=== PATIENT | female | born 1970 | race Caucasian/White ===

== ENCOUNTER → 2018-07-23 12:22 | Outpatient (REF) | payer BC, SELFPAY ==
[2018-07-23 12:29] LABS: Adenovirus F 40/41, stool Not Detected (NotDetected); Astrovirus Not Detected (NotDetected); Clostridium Difficile A/B, PCR Not Detected (NotDetected); Cryptosporidium Not Detected (NotDetected); Cyclospora Cayetanesis Not Detected (NotDetected); Entamoeba histolytica Not Detected (NotDetected); Enteroaggregative E coli Not Detected (NotDetected); Enterotoxigenic E coli Not Detected (NotDetected); Giardia lamblia Not Detected (NotDetected); Norovirus Not Detected (NotDetected); Plesimonas Shigalloides, PCR Not Detected (NotDetected); Rotavirus A Not Detected (NotDetected); Salmonella, PCR Not Detected (NotDetected); Sapovirus Not Detected (NotDetected); Shiga-like toxin E coli Not Detected (NotDetected); Shigella Enterovasive E coli Not Detected (NotDetected); Vibrio Cholerae Not Detected (NotDetected); Vibrio, PCR Not Detected (NotDetected); Yersinia Entercolitica, PCR Not Detected (NotDetected)
[2018-07-23 17:10] LABS: Occult Blood,Stool Positive (Negative)
[2018-07-23 17:21] LABS: Campylobacter Detected (NotDetected)
[2018-07-23 17:22] LABS: Enteropathogenic E coli Detected (NotDetected)
== END ==
LOC: LAB 12:22
PROVIDERS: Visit Provider Emergency Medicine
DX: R10.31 Right lower quadrant pain (principal)
CPT/HCPCS: 82272; 87507; G0328

== ENCOUNTER 2021-12-01 13:58 | Emergency (ER) | payer BC, SELFPAY ==
[2021-12-01 15:12] VITALS: BP 164/92; PULSE 94; RESP 18; TEMP 37.1; O2SAT 97; BMI 28.0
--- NOTE | 2021-12-01 15:28 | HMH.EDUTC ---
[facility] [place] Disposition Clinical Impression: Low back pain Qualifiers: Chronicity: acute Back pain laterality: bilateral Sciatica presence: without sciatica Qualified Code(s): M54.50 - Low back pain, unspecified Low back strain Qualifiers: Encounter type: initial encounter Qualified Code(s): S39.012A - Strain of muscle, fascia and tendon of lower back, initial encounter Disposition: Home, Self-Care Condition on Discharge: Good Instructions: Low Back Pain, DI for Low Back Pain, Cyclobenzaprine, Methylprednisolone, Methylprednisolone Injection, Ketorolac Injection Additional Instructions: Go home and rest. It would be best if you rested tomorrow too. If you don't allow yourself to rest and heal, you will not get better as fast as you would if you did No heavy lifting. No twisting. Take the oral medications as directed. The muscle relaxer (cyclobenzaprine--Flexeril) will make you drowsy, so don't drive or operate heavy machinery after taking it. Don't start the oral steroids (medrol dose pack) until tomorrow, since you had the shots in here today. Follow up with your regular doctor. GO TO THE ER FOR ANY WORSENING SYMPTOMS OR CONCERN, ESPECIALLY BOWEL OR BLADDER ISSUES, SADDLE AREA NUMBNESS, FEVER, ETC Prescriptions: Cyclobenzaprine HCl [Cyclobenzaprine 10mg Tab] 10 mg PO BIDP PRN #20 tab PRN Reason: Muscle Spasm Transmission Status: Received by [id number] methylPREDNISolone [Medrol] 4 mg PO DIRECTED 6 Days #21 packet Transmission Status: Received by [id number] Referrals: Emir Becerra [Primary Care Provider] - Time of Disposition: 15:53 Medical Decision Making - Medical Records Medical records reviewed: No: I reviewed the patient's medical records. - Isaiah Inquiry Pt receiving controlled substance: No Vital Signs: 12/01/21 15:12 Temperature 98.8 F Temperature Source Oral Pulse Rate [Right Brachial] 94 H Respiratory Rate 18 Blood Pressure [Right Arm] 164/92 H Blood Pressure Mean [Right Arm] 116 Blood Pressure Source [Right Arm] Automatic Cuff 02 Sat by Pulse Oximetry 97 Oxygen Delivery Method Room Air Orders (Tests/Meds): ED MEDICATIONS Discontinued Medications Generic Name Dose Route Start Last Admin Trade Name Freq PRN Reason Stop Dose Admin Ketorolac Tromethamine 60 mg 12/01/21 15:49 12/01/21 16:09 Ketorolac 60mg/2ml Vial IM 12/01/21 15:50 60 mg ONCE ONE Administration Methylprednisolone Sodium Succinate 125 mg 12/01/21 15:49 Methylprednisolone Sod Succ 125mg Vial IM 12/01/21 15:50 ONCE ONE [facility] [place] HPI - General Stated complaint: back pain Time Seen by Provider: 12/01/21 15:28 Mode of Arrival: Ambulatory Source of Information: Patient Limitations: No Limitations Description of Symptoms (Recalled from Triage Doc. by RN): pt reports bending down to put on shoe when she heard a pop this morning, c/o lower back pain HEENT Symptoms (Recalled from RN notes): No Resp Symptoms (Recalled from RN notes): No Skin Symptoms (Recalled from RN notes): No MS Symptoms (Recalled from RN notes): Yes (lower back pain) Functional Status (Recalled from RN notes): n/a - History of Present Illness Provider Complaint: She states that she bent over and was pulling her boot on this morning when she felt something pull in her lower back. Since then she has had had lower back pain that goes all across her lower back. She denies any radiation of the pain down her legs or any where else. She denies any urinary complaints. She denies any numbness of her legs or saddle area. She denies any bowel or bladder issues. - Related Data Previous Rx's Medication Instructions Recorded gabapentin 100 mg capsule 100 mg PO BID #60 cap 01/27/21 Cyclobenzaprine HCl 10 mg PO BIDP PRN #20 tab 12/01/21 [Cyclobenzaprine 10mg Tab] methylPREDNISolone [Medrol] 4 mg PO DIRECTED 6 Days #21 12/01/21 packet Allergies Allergy/AdvReac Type Severity Reaction St
[2021-12-01 16:21] VITALS: BP 164/92; PULSE 94; RESP 16; TEMP 37.1; O2SAT 97
== END 2021-12-01 16:23 | disposition home or self-care (01) ==
PROVIDERS: Emergency Provider Nurse Practitioner Family; PCP Family Medicine
DX: S39.012A Strain of muscle, fascia and tendon of lower back, initial encounter (principal); X50.0XXA Overexertion from strenuous movement or load, initial encounter; Y92.019 Unspecified place in single-family (private) house as the place of occurrence of the external cause
CPT/HCPCS: 96372; 99202; G0463

== ENCOUNTER 2022-06-06 05:42 | Emergency (ER) | payer BC, SELFPAY ==
[2022-06-06 05:43] VITALS: BP 159/99; PULSE 96; RESP 18; TEMP 36.8; O2SAT 99; BMI 28.0
--- NOTE | 2022-06-06 06:52 | HMH.EDSKAF ---
ED Disposition Clinical Impression: Abscess of skin or subcutaneous tissue Qualifiers: Site of cutaneous abscess: trunk Site of cutaneous abscess of trunk: groin Qualified Code(s): L02.214 - Cutaneous abscess of groin Disposition: Home, Self-Care Condition on Discharge: Good Instructions: DI for Skin Abscess Additional Instructions: warm compresses and use meds and call pcp for follow up Prescriptions: cephALEXin [cephALEXin 500mg capsule*] 500 mg PO TID #30 cap Transmission Status: Pending to [id number] clindamycin HCL [Clindamycin HCl] 300 mg PO TID #30 cap Transmission Status: Pending to [id number] Referrals: Emir Becerra [Primary Care Provider] - - Critical Care Critical Care Time: No Attestation: On 06/06/22, the high probability of a clinically significant, sudden or life threatening deterioration of the following system(s) required my full and direct attention, intervention and personal management. The time I documented below is in addition to time spent performing reported procedures but includes the following listed in this critical care notation. Medical Decision Making - Medical Records Medical records reviewed: Yes: I reviewed the patient's medical records. - Isaiah Inquiry Pt receiving controlled substance: No Vital Signs: 06/06/22 05:43 Temperature 98.2 F Temperature Source Oral Pulse Rate [Right] 96 H Respiratory Rate 18 Blood Pressure [Right Arm] 159/99 H Blood Pressure Mean [Right Arm] 119 02 Sat by Pulse Oximetry 99 - Lab Data Lab results reviewed: Yes: I reviewed the patient's lab results. Lab Results 06/06/22 06:37: WBC 8.2, RBC 5.31, Hgb 16.3 H, Hct 50.0 H, MCV 94.0, MCH 30.7, MCHC 32.6, RDW 13.4, Plt Count 205, MPV 8.7, Neut % (Auto) 66.5, Lymph % (Auto) 25.7, Darke % (Auto) 3.4, Eos % (Auto) 3.1, Baso % (Auto) 1.3, Neut # (Auto) 5.4, Lymph # (Auto) 2.1, Darke # (Auto) 0.3, Eos # (Auto) 0.3, Baso # (Auto) 0.1 06/06/22 06:37: Sodium 138, Potassium 4.2, Chloride 107, Carbon Dioxide 25, Anion Gap 10.2, BUN 18 H, Creatinine 0.80, Estimated Creat Clear 111, Estimated GFR 75, Est GFR ( Amer) 91, Glucose 134 H, Calcium 9.2, Total Bilirubin 0.4, AST 24, ALT 24, Alkaline Phosphatase 104, C-Reactive Protein 15.3 H, Total Protein 7.0, Albumin 4.1, Globulin 2.9, Albumin/Globulin Ratio 1.4 Result diagrams: 06/06/22 06:37 06/06/22 06:37 Orders (Tests/Meds): ORDERS Category Date Time Status C-Reactive Protein Stat Lab 06/06/22 06:37 Results Complete Blood Count Auto Diff Stat Lab 06/06/22 06:37 Results Comprehensive Metabolic Panel Stat Lab 06/06/22 06:37 Results Erythrocyte Sedimentation Rate Stat Lab 06/06/22 06:37 Results Procalcitonin Stat Lab 06/06/22 06:37 Results Medical Decision Narrative: will place on abx and warm soaks and call pcp for follow up and culture results Skin/Abscess/FB HPI - General Chief complaint: Skin/Abscess/Foreign Body Stated complaint: Boil in panty line area Time Seen by Provider: 06/06/22 06:52 Mode of Arrival: Ambulatory Source of Information: Patient, Medical Record Limitations: No Limitations Description of Symptoms (Recalled from ER Triage Doc. by RN): pt c/o boil in lt groin area that has been there for 2 weeks and progessive gotten larger and more painful. - History of Present Illness HPI narrative: area lt pubic area over the last 2 weeks MD complaint: abscess/boil Onset (ago): day(s) Tetanus up to date: unsure Location: genitals Severity: moderate Associated symptoms: denies other symptoms Treatments prior to arrival: none - Related Data Previous Rx's Medication Instructions Recorded gabapentin 100 mg capsule 100 mg PO BID #60 cap 01/27/21 Cyclobenzaprine HCl 10 mg PO BIDP PRN #20 tab 12/01/21 [Cyclobenzaprine 10mg Tab] methylPREDNISolone [Medrol] 4 mg PO DIRECTED 6 Days #21 12/01/21 packet cephALEXin [cephALEXin 500mg 500 mg PO TID #30 cap 06/06/22 capsule*] clindam
[2022-06-06 06:54] LABS: Alanine Aminotransferase 24 U/L (12-78); Albumin Level 4.1 g/dl (3.5-5.0); Albumin/Globulin Ratio 1.4 (1.1-1.8); Alkaline Phosphatase 104 U/L (38-126); Anion Gap 10.2 mEq/L (5-15); Aspartate Amino Transferase 24 U/L (14-36); Bilirubin,Total 0.4 mg/dl (0.2-1.3); Blood Urea Nitrogen 18 mg/dl (7-17); Calcium 9.2 mg/dl (8.4-10.2); Carbon Dioxide 25 mmol/L (22.0-30.0); Chloride 107 mmol/L (98-107); Creatinine Clearance Estimated 111 mL/min (50-200); Estimated Glomerular Filt Rate 75 ml/min (>60); GFR (African American) 91 ML/MIN (>60); Globulin 2.9 g/dL (1.3-3.2); Glucose 134 mg/dl (74-100); Potassium 4.2 mmoL/L (3.5-5.1); Sodium 138 mmol/L (136-145)
--- NOTE | 2022-06-06 06:57 | PC.NURSE ---
consent obtained for i&d
[2022-06-06 06:59] LABS: C-Reactive Protein 15.3 mg/L (0-4)
[2022-06-06 07:03] LABS: Basophils # 0.1 K/mm3 (0-0.2); Basophils % 1.3 % (0.1-2.0); Eosinophils # 0.3 K/mm3 (0.0-0.4); Eosinophils % 3.1 % (0.1-12.0); Hemoglobin 16.3 g/dL (12.2-16.2); Lymphocytes # 2.1 K/mm3 (0.7-4.5); Lymphocytes % 25.7 % (10-50); Mean Corpuscular HGB Conc 32.6 g/dL (31.8-35.4); Mean Corpuscular Hemoglobin 30.7 pg (27.0-31.2); Mean Platelet Volume 8.7 fl (7.4-10.4); Monocytes # 0.3 K/mm3 (0.1-1.0); Monocytes % 3.4 % (1.7-9.3); Neutrophils # 5.4 K/mm3 (1.8-7.8); Neutrophils % 66.5 % (37.0-80.0); Platelet Count 205 K/mm3 (142-424); Red Blood Count 5.31 M/mm3 (4.20-5.40); Red Cell Distribution Width 13.4 % (11.5-17.5); White Blood Count 8.2 K/mm3 (4.8-10.8)
[2022-06-06 07:13] LABS: Procalcitonin 0.058 ng/mL (0.0-2.0)
[2022-06-06 07:21] VITALS: BP 147/78; PULSE 91; RESP 18; TEMP 36.8; O2SAT 99
[2022-06-06 07:22] VITALS: BP 150/87; PULSE 72; RESP 16; O2SAT 97
--- NOTE | 2022-06-06 07:23 | PC.NURSE ---
pt to DC
[2022-06-06 07:32] LABS: Erythrocyte Sedimentation Rate 8 mm/hr (0-30)
== END 2022-06-06 07:25 | disposition home or self-care (01) ==
PROVIDERS: Emergency Provider Emergency Medicine; PCP Family Medicine
DX: L02.214 Cutaneous abscess of groin (principal)
CPT/HCPCS: 10060; 80053; 84145; 85025; 85651; 86140; 87070; 87077; 87186; 87205; 99283

== ENCOUNTER 2023-12-07 06:27 | Emergency (ER) | payer BC, SELFPAY ==
[2023-12-07 06:29] VITALS: BP 136/96; PULSE 101; RESP 18; TEMP 36.4; O2SAT 98; BMI 28.0
--- NOTE | 2023-12-07 06:37 | ED_ITS ---
Discharge Plan Disposition Patient Disposition: Home, Self-Care Prescriptions Prescriptions: No Action gabapentin [Neurontin] 100 mg capsule 100 mg PO BID Qty: 60 2RF cyclobenzaprine 10 MG tablet 10 mg PO BIDP PRN (Reason: Muscle Spasm) Qty: 20 0RF methylprednisolone 4 MG tablets,dose pack 4 mg PO DIRECTED 6 Days Qty: 21 0RF cephalexin 500 MG capsule 500 mg PO TID Qty: 30 0RF clindamycin HCl 300 MG capsule 300 mg PO TID Qty: 30 0RF Referrals Follow up/Referrals: Emir Becerra [Primary Care Provider] - See instructions Activity Restrictions/Add. Instructions Additional Instructions/Restrictions: Please use erythromycin ointment 4 times a day for the next week. Please return for further evaluation if your symptoms worsen or do not improve. Do not wear contacts over the next week. Clinical Impressions Clinical Impression: Eye foreign body Qualifiers: Encounter type: initial encounter Laterality: right Qualified Code(s): T15.91XA - Foreign body on external eye, part unspecified, right eye, initial encounter Corneal abrasion, right Qualifiers: Encounter type: initial encounter Qualified Code(s): S05.01XA - Injury of conjunctiva and corneal abrasion without foreign body, right eye, initial encounter Discharge ED Provider: Titus Mojica General Adult HPI General Chief complaint: Eye Problems Stated complaint: AO 12/06/23 20:00 FB Right Eye Time Seen by Provider: 12/07/23 06:37 History of Present Illness HPI narrative: 53-year-old female without significant past medical history presents with concern for right eye foreign body. She reports that she walked in front of a fan yesterday last night and felt something got in her eye. She washed it out with some Visine and rubbed it quite a bit and then went to sleep. This morning it still bothering her. She reports some decreased vision. Reports it is more irritating and painful Related Data Previous Rx's Medication Instructions Recorded gabapentin 100 mg capsule 100 mg PO BID #60 caps 01/27/21 (Neurontin) cyclobenzaprine 10 mg tablet 10 mg PO BIDP PRN Muscle Spasm #20 12/01/21 tabs methylprednisolone 4 mg tablets in 4 mg PO DIRECTED 6 days #21 12/01/21 a dose pack packets cephalexin 500 mg capsule 500 mg PO TID #30 caps 06/06/22 clindamycin HCl 300 mg capsule 300 mg PO TID #30 caps 06/06/22 Allergies Allergy/AdvReac Type Severity Reaction Status Date / Time No Known Allergies Allergy Verified 01/27/21 13:15 [facility] Disclaimer: The information contained in this section may have been updated after the patient was seen, as this information can be updated by other users. Social History Smoking Status: Never smoker alcohol intake: never current occupational status: employed Travel in the last 8 weeks: None household members: spouse and family housing: house current occupation: [employer] caffeine: Yes ROS Obtained: Yes All systems reviewed & no additional complaints except as documented Physical Exam General General appearance: alert and in no apparent distress Head Head exam: atraumatic and normocephalic Eye Eye exam: Present PERRL, EOMI and other (Right eye conjunctival injection, small circular area of fluorescein uptake over the right central cornea without apparent foreign body. No Yunior sign.) ENT ENT exam: Present normal oropharynx and normal external ear exam Neck Neck exam: Present normal inspection and full ROM Chest Chest inspection: Present normal inspection and symmetric chest wall rise; Absent tenderness Respiratory Respiratory exam: Present normal lung sounds bilaterally; Absent respiratory distress Cardiovascular Cardiovascular exam: Present regular rate and normal rhythm Abdominal Exam Abdominal exam: Present soft; Absent distention, tenderness or guarding Extremities Exam Extremities exam: Present normal inspection; Absent edema or joint swelling Back Exam Back exam: Present normal inspection; Absent tenderness Neurological Exam Neurological exam: Present alert and oriented X3; Absent motor sensory deficit Psychiatric Psychiatric exam: Present normal affect and normal mood Skin Skin exam: Present warm, dry and normal color Lymphatic Lymphatic Findings: no adenopathy Medical Decision Making Medical Records Medical records reviewed: Yes I reviewed the patient's medical records. Isaiah Inquiry Pt receiving controlled substance: No Isaiah was queried for this patient: No Vital Signs: 12/07/23 06:29 Temperature 97.6 F Temperature Source Oral Pulse Rate [Left] 101 H Respiratory Rate 18 Blood Pressure [Right Arm] 136/96 H Blood Pressure Mean [Right Arm] 109 Blood Pressure Position [Right Arm] Sitting 02 Sat by Pulse Oximetry 98 Oxygen Delivery Method Room Air Lab Data Lab results reviewed: Yes I reviewed the patient's lab results. Orders (Tests/Meds): ED MEDICATIONS Generic Name Dose Route Start Last Admin Trade Name Freq PRN Reason Stop Dose Admin Fluorescein Sodium 1 mg 02/13/24 06:54 Fluorescein Sodium 1mg Strip OP 12/07/23 06:55 ONCE ONE Tetracaine HCl 1 ml 12/07/23 06:53 Tetracaine 0.5% Opth Brooke 15ml OP 12/07/23 06:54 ONCE ONE Medical Decision Narrative: 53-year-old female presents with concern for right eye foreign body since last night. Differential diagnosis includes is not limited to ocular foreign body, corneal abrasion, ruptured globe. Tetracaine eyedrops applied. On exam patient has a small right corneal abrasion without obvious foreign body on fluorescein staining. The eye was copiously irrigated multiple times. On reassessment after irrigation the eye has the same appearance. No apparent foreign body. I had extensive discussion with patient regarding her presentation. Most likely consistent with corneal abrasion, she likely cleared the foreign body during the night. Patient discharged in stable condition. Strict return precautions including given including for new or worsening symptoms. Patient given erythromycin ointment and instructions regarding application. Procedures Risk/Benefits of Procedure(s) Were Explained: Yes Critical Care Critical Care Time Critical Care Time: No
[2023-12-07] MEDS: TETRACAINE 0.5% OPTH SOL 15ML OP (06:58)
[2023-12-07] MEDS: EYE WASH IRRIGATION SOLN 118ML BOTTLE 120 ML OP (06:58)
[2023-12-07] MEDS: FLUORESCEIN SODIUM 1MG STRIP 1 MG OP (06:58)
[2023-12-07 06:59] VITALS: BP 136/96; PULSE 98; RESP 18; TEMP 36.5; O2SAT 98
== END 2023-12-07 07:00 | disposition home or self-care (01) ==
PROVIDERS: Emergency Provider Emergency Medicine; PCP Family Medicine
DX: S05.01XA Injury of conjunctiva and corneal abrasion without foreign body, right eye, initial encounter (principal); W45.8XXA Other foreign body or object entering through skin, initial encounter
CPT/HCPCS: 99283

== ENCOUNTER 2024-04-07 08:18 | Outpatient (CLI) | payer BC, SELFPAY ==
--- NOTE | 2024-04-07 08:23 | MR_ITS ---
FINAL REPORT CLINICAL HISTORY: BACK PAIN FINDINGS: Multiplanar MR imaging of the lumbar spine was performed without contrast. On the sagittal T2-weighted images, disc degeneration is seen at multiple levels. Endplate changes are seen at several levels. The vertebral alignment is normal. There is no evidence of fracture. The conus has an unremarkable appearance. L1-2: An annular disc bulge is present. There is no significant canal stenosis or neural foraminal narrowing. L2-3: An annular bulge and facet arthropathy are present. There is a right foraminal inferiorly extruded disc versus sequestered disc fragment. There is right lateral recess stenosis and right L3 nerve root impingement. There is moderate right and mild left neural foraminal narrowing. L3-4: An annular bulge and facet arthropathy are present. There is moderate right and mild left neural foraminal narrowing. L4-5: An annular bulge is present. Facet arthropathy and osteophytes are present. There is a right posterolateral disc protrusion with moderate right and mild left neural foraminal narrowing. L5-S1: An annular disc bulge is present. There is moderate left neural foraminal narrowing. IMPRESSION: Right foraminal inferiorly extruded disc versus sequestered disc fragment at L2-3 with right lateral recess stenosis and right L3 nerve root impingement. Right posterolateral disc protrusion at L4-5 with moderate right neural foraminal narrowing. Multilevel degenerative disc disease and spondylosis. Reviewed, Interpreted and Dictated by Henry Kraus III, MD Transcribed by Maribell Naylor Authenticated and [facility]
== END 2024-04-07 23:59 | disposition home or self-care (01) ==
LOC: RAD 08:19
PROVIDERS: PCP Family Medicine; Visit Provider Family Medicine
DX: M54.50 Low back pain, unspecified (principal)
CPT/HCPCS: 72148

== ENCOUNTER 2024-10-20 14:58 | Emergency (ER) | payer BC, SELFPAY ==
[2024-10-20 14:58] VITALS: BP 164/96; PULSE 110; RESP 18; TEMP 37.2; O2SAT 95; BMI 28.8
--- NOTE | 2024-10-20 16:02 | PC.NURSE ---
triage performed by James Reese RN
[2024-10-20 16:25] VITALS: BP 146/84; PULSE 93; O2SAT 96
[2024-10-20 16:31] VITALS: BP 164/81; PULSE 96; O2SAT 97
[2024-10-20 16:45] VITALS: BP 152/106; PULSE 99; RESP 18; O2SAT 100
--- NOTE | 2024-10-20 16:49 | HMH.EDGENADL ---
Discharge Plan Disposition Patient Disposition: Home, Self-Care Condition: Good Prescriptions Prescriptions: New sulfamethoxazole-trimethoprim [Bactrim DS] 800-160 mg tablet 1 tab PO Q12H Qty: 20 0RF No Action gabapentin [Neurontin] 100 mg capsule 100 mg PO BID Qty: 60 2RF cyclobenzaprine 10 MG tablet 10 mg PO BIDP PRN (Reason: Muscle Spasm) Qty: 20 0RF methylprednisolone 4 MG tablets,dose pack 4 mg PO DIRECTED 6 Days Qty: 21 0RF cephalexin 500 MG capsule 500 mg PO TID Qty: 30 0RF clindamycin HCl 300 MG capsule 300 mg PO TID Qty: 30 0RF Referrals Follow up/Referrals: Emir Becerra [Primary Care Provider] - See instructions Activity Restrictions/Add. Instructions Additional Instructions/Restrictions: Keep area clean and dry Follow-up with primary care If worsens or no improvement return to the ER Clinical Impressions Clinical Impression: Abscess of skin and subcutaneous tissue Qualifiers: Site of cutaneous abscess: other site Qualified Code(s): L02.818 - Cutaneous abscess of other sites Instructions Patient Instructions: DI for Skin Abscess Print Language Print Language: Citizen Of [place] Discharge ED Provider: Stephanie Panchal General Adult HPI <Elba Jones ([facility]), [employer] - Last Filed: 10/20/24 16:56> General Chief complaint: Skin/Abscess/Foreign Body Stated complaint: cyst Time Seen by Provider: 10/20/24 16:08 Mode of Arrival: Ambulatory Source of Information: Patient Limitations: No Limitations Description of Symptoms (Recalled from ER Triage Doc. by RN): pt presents to ED stating she has a boil area noted to pubic area on the left side. pt states she has had some pus' drainage. pt states she first noticed the boil about a month ago and has tried epsom salt. denies any fever. History of Present Illness HPI narrative: 54-year-old female presents for an abscess to the pubic area on the left side. Patient states she noticed a boil starting about a month ago and it remains small until a couple days ago when it quotation blew up . Patient states she has had these abscesses numerous times a lot of times they just go away on their own but she has had to have them I&D to couple times. MD complaint: abscess to pubic area on the left side. Related Data Previous Rx's ?Medication ?Instructions ?Recorded gabapentin 100 mg capsule 100 mg PO BID #60 caps 01/27/21 (Neurontin) cyclobenzaprine 10 mg tablet 10 mg PO BIDP PRN Muscle Spasm #20 12/01/21 tabs methylprednisolone 4 mg tablets in 4 mg PO DIRECTED 6 days #21 12/01/21 a dose pack packets cephalexin 500 mg capsule 500 mg PO TID #30 caps 06/06/22 clindamycin HCl 300 mg capsule 300 mg PO TID #30 caps 06/06/22 sulfamethoxazole 800 1 tab PO Q12H #20 tabs 10/20/24 mg-trimethoprim 160 mg tablet (Bactrim DS) Allergies Allergy/AdvReac Type Severity Reaction Status Date / Time No Known Allergies Allergy Verified 01/27/21 13:15 [facility] <Elba Jones ([facility]), [employer] - Last Filed: 10/20/24 16:56> [facility] Disclaimer: The information contained in this section may have been updated after the patient was seen, as this information can be updated by other users. 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: Yes Have you lived/traveled outside US in past 30 days?: No Contact w/someone who lives/traveled outside US past 30 days?: No Exposure to someone with infectious disease in past 14 days?: No Do you have a fever (greater than 100.4 F or 38 C)?: No Have you tested positive for COVID-19: No Exposed to someone with COVID-19 in past 14 days?: No Do you have a sore throat?: No Do you have a cough?: No Do you have any weakness?: No Do you have any diarrhea?: No Are you experiencing any unusual bleeding?: No Do you have any muscle aches/pain?: No Do you have any abdominal pain?: No Are you experiencing loss of taste or smell?: No Other Medical History Have you received the Flu Vaccine for this season: No Have you received the Pneumonia Vaccine: No <Elba Jones ([facility]), [employer] - Last Filed: 10/20/24 16:56> ROS Obtained: Yes Systems reviewed as appropriate & no additional complaints except as documented Physical Exam <Elba Jones ([facility]), [employer] - Last Filed: 10/20/24 16:56> General General appearance: alert and in no apparent distress ENT ENT exam: Present normal exam Respiratory Respiratory exam: Present normal lung sounds bilaterally Cardiovascular Cardiovascular exam: Present regular rate and normal rhythm Neurological Exam Neurological exam: Present alert and oriented X3 Skin Skin exam: Present warm Expanded Skin Exam Type of lesion: Present abscess Body image: 1. Red, indurated, pus filled Medical Decision Making <Elba Multanirandy ([facility]), [employer] - Last Filed: 10/20/24 16:56> Medical Records Medical records reviewed: Yes I reviewed the patient's medical records. Screening: Per USPSTF and CDC recommendations, given the prevalence of disease in our region, it is our hospital?s policy to screen for HIV and viral Hepatitis for all patients aged 18 and over and those with ongoing risk factors. Isaiah Inquiry Pt receiving controlled substance: No Isaiah was queried for this patient: No Vital Signs: 10/20/24 14:58 10/20/24 16:25 10/20/24 16:31 Temperature 99.0 F Temperature Source Oral Pulse Rate 93 H 96 H Pulse Rate [Left Radial] 110 H Respiratory Rate 18 Blood Pressure 146/84 H 164/81 H Blood Pressure [Left Arm] 164/96 H Blood Pressure Mean [Left Arm] 118 Blood Pressure Source Blood Pressure Source [Left Arm] Automatic Cuff Blood Pressure Position Blood Pressure Position [Left Arm] Sitting 02 Sat by Pulse Oximetry 95 96 97 Oxygen Delivery Method Room Air Room Air Room Air 10/20/24 16:45 10/20/24 17:03 Temperature 97.7 F Temperature Source Oral Pulse Rate 99 H 97 H Pulse Rate [Left Radial] Respiratory Rate 18 18 Blood Pressure 152/106 H 159/96 H Blood Pressure [Left Arm] Blood Pressure Mean [Left Arm] Blood Pressure Source Automatic Cuff Blood Pressure Source [Left Arm] Blood Pressure Position Sitting Blood Pressure Position [Left Arm] 02 Sat by Pulse Oximetry 100 Oxygen Delivery Method Room Air Room Air Orders (Tests/Meds): ORDERS Category Date Time Status Wound Culture and Gram Stain Stat Micro 10/20/24 Received <Stephanie Panchal DO - Last Filed: 10/20/24 23:23> Vital Signs: 10/20/24 14:58 10/20/24 16:25 10/20/24 16:31 Temperature 99.0 F Temperature Source Oral Pulse Rate 93 H 96 H Pulse Rate [Left Radial] 110 H Respiratory Rate 18 Blood Pressure 146/84 H 164/81 H Blood Pressure [Left Arm] 164/96 H Blood Pressure Mean [Left Arm] 118 Blood Pressure Source Blood Pressure Source [Left Arm] Automatic Cuff Blood Pressure Position Blood Pressure Position [Left Arm] Sitting 02 Sat by Pulse Oximetry 95 96 97 Oxygen Delivery Method Room Air Room Air Room Air 10/20/24 16:45 10/20/24 17:03 Temperature 97.7 F Temperature Source Oral Pulse Rate 99 H 97 H Pulse Rate [Left Radial] Respiratory Rate 18 18 Blood Pressure 152/106 H 159/96 H Blood Pressure [Left Arm] Blood Pressure Mean [Left Arm] Blood Pressure Source Automatic Cuff Blood Pressure Source [Left Arm] Blood Pressure Position Sitting Blood Pressure Position [Left Arm] 02 Sat by Pulse Oximetry 100 Oxygen Delivery Method Room Air Room Air Orders (Tests/Meds): ORDERS Category Date Time Status Wound Culture and Gram Stain Stat Micro 10/20/24 Received Medical Decision Narrative: I was consulted by the MALLORIE, and we discussed the complexity of the problems being addressed. I approved the treatment and management plan for this patient's care in the emergency department, thus performing a substantive portion of the medical decision making. Patient presents with a simple abscess in the left groin with no significant red streaking away. No concerning findings for hidradenitis suppurativa. After informed consent was explained, patient consented to incision and drainage by the advanced practice provider. Please see procedure note for further documentation. Patient was then prescribed prescription for antibiotics. Based on lack of systemic symptoms and reassuring clinical exam, I do not feel that labs or imaging otherwise are indicated. Strict return precautions were given and the patient was discharged after all questions were answered. Stephanie Panchal DO Procedures <Elba Jones ([facility]), [employer] - Last Filed: 10/20/24 16:56> Abscess I/D Site: other (Groin) Side (if applicable): left Local Anesthetic: lidocaine 1% Amount of anesthesia used (mL): 3 Technique: incised with #11 blade Amount of fluid expressed (mL): 10 Packing used?: plain (wick placed) Critical Care <Elba Jones ([facility]), [employer] - Last Filed: 10/20/24 16:56> Critical Care Time Critical Care Time: No
[2024-10-20 17:03] VITALS: BP 159/96; PULSE 97; RESP 18; TEMP 36.5; O2SAT 97
== END 2024-10-20 17:05 | disposition home or self-care (01) ==
PROVIDERS: Emergency Provider Emergency Medicine; PCP Family Medicine
DX: L02.818 Cutaneous abscess of other sites (principal); L02.91 Cutaneous abscess, unspecified
CPT/HCPCS: 10060; 87070; 87077; 87186; 87205; 99283

== ENCOUNTER 2025-08-16 04:03 | Emergency (ER) | payer BC, SELFPAY ==
--- OUTSIDE RECORDS SUMMARY | 2025-08-16 04:08 | XMS_ITS | Clinical Summary ---
[facility] Address [address] [place] [address] Care Team Providers Care Privacy Manager Name Role Phone Emir Becerra MD Primary Care Provider [phone] Social History Tobacco Use Types Packs/Day Years Used Date Smoking Tobacco: Never Assessed Abuse Screen Answer Date Recorded Unsafe at Home or Work/School Not on file Feels Threatened by Someone? Not on file 08/2023 Does Anyone Keep You from Co ntacting Others or Doint Things Outside the Home? Not on file 08/04/2023 Physical Sign of Abuse Present Not on file 1 Housing Stability Answer Date Recorded Current Living Arrangements Not on file 07/25 Potentially Unsafe Housing Conditions Not on jose e 08/04/2023 Family and Community Support Answer Db e Recorded Help with Day-to-Day Activities Not on file 08/04/2023 Lonely or Isolated Not on file 08/04/2023 Employment Answer Date Recorded Do you want help finding or keeping work or a rahul b? Not on file 08/04/2023 Disabilities Answer Date Recorded Concentrating, Remembering, or Making Decisions Difficulty Not on file 08/04/2023 Doing Errands Independently Difficulty Not on fi le 08/04/2023 Education Answer Date Recorded Help with school or training? Not on file Preferred Language Not on file 08/04/2023 Comments Unknown Sex and Gender Information Value Date Recorded Sex Assigned at Not on file Legal Sex Female 12:37 PM EDT Gender Identity Not on file Sexual Orientation Not on file Plan of Treatment Health Maintenance Due Date Last Done Comments Annual Gynecologic Pelvic and Breast Exam 1969 TDAP/TD VACCINES (1 - Tdap) 1988 COLOGUARD 2014 COLON CANCER SCREENING 5 YEA R SIGMOIDOSCOPY 2014 COLONOSCOPY 2014 [address] CANCER SCREENING 2014 CT COLONOGRAPHY 2014 FECAL OCCULT BLOOD TEST 2014 FIT Testing (1 year) 2014 MAMMOGRAM 12/11/2017 12/11/2015, 12/04/2015 ANNUAL PHYSICAL 02/18/2019 HEPATITIS C SCREENING 02/18/2019 Pneumococcal Vaccine 50+ (1 of 1 - PCV) 2019 ZOSTER VACCINE (1 of 2) 2019 INFLUENZA VACCINE 05/25/2025 Procedures Procedure Name Priority Date/Time Associated Diagnosis Comments MAMMO DIAGNOSTIC BILATERAL W CAD Routine 12/11/2015 7:39 AM EST from Last 3 Months or Most Recently Relevant to Health Maintenance Results * Mammo diagnostic bilateral w CAD (12/11/2015 7:39 AM EST) Anatomical Region Laterality Modality Breast Bilateral Mammography 12/11/2015 7:39 AM EST Narrative 12/11/2015 8:35 AM EST BILATERAL DIAGNOSTIC MAMMOGRAM WITH TOMOSYNTHESIS-12/11/2015- CLINICAL INDICATION- 45-year-old patient recalled from her baseline screening study done on 12/04/2015 for further evaluation of both breasts. TECHNIQUE- 2D/3D combination bilateral MLO focal compression views were performed as well as a left CC focal compression view. COMPARISON- None. FINDINGS-The asymmetries noted in the right superior, left superior and left slight lateral breast improved in appearance with focal compression imaging. No underlying mass or distortion is identified. IMPRESSION- No mammographic abnormality confirmed in either breast. ACR BI-RADS CATEGORY- I, NEGATIVE RECOMMENDATION- Recommend the patient continue with annual screening mammography. She will be due in one year for her next screening exam. CAD was utilized. The standard false-negative rate of mammography is between 10% and 25%. Complex patterns or increased breast density will markedly elevate the false-negative rate of mammography. A letter, in lay terminology, with the results of this exam was given to the patient at the time of the visit. Reading Radiologist- VIKI LI Releasing Radiologist- VIKI LI Released Date Time- 12/11/15 0835 Parmjit Fernandez Procedure Note Viki Trujillo MD - 12/11/2015 BILATERAL DIAGNOSTIC MAMMOGRAM WITH TOMOSYNTHESIS-12/11/2015- CLINICAL INDICATION- 45-year-old patient recalled from her baseline screening study done on 12/04/2015 for further evaluation of both breasts. TECHNIQUE- 2D/3D combination bilateral MLO focal compression views were performed as well as a left CC focal compression view. COMPARISON- None. FINDINGS-The asymmetries noted in the right superior, left superior and left slight lateral breast improved in appearance with focal compression imaging. No underlying mass or distortion is identified. IMPRESSION- No mammographic abnormality confirmed in either breast. ACR BI-RADS CATEGORY- I, NEGATIVE RECOMMENDATION- Recommend the patient continue with annual screening mammography. She will be due in one year for her next screening exam. CAD was utilized. The standard false-negative rate of mammography is between 10% and 25%. Complex patterns or increased breast density will markedly elevate the false-negative rate of mammography. A letter, in lay terminology, with the results of this exam was given to the patient at the time of the visit. Reading Radiologist- VIKI LI Releasing Radiologist- VIKI LI Released Date Time- 12/11/15 0835 Parmjit Fernandez Emir Becerra MD [facility] MAMMOGRAPHY ORDERABLES Fi nal Result from Last 3 Months or Most Recently Relevant to Health Maintenance Insurance [facility] PPO Care Teams Privacy Manager Relationship Specialty Start Date End Date Emir Becerra MD [address] [address] PCP - General 12/03/15
[2025-08-16 04:09] VITALS: BP 157/78; PULSE 71; RESP 18; TEMP 37.1; O2SAT 96; BMI 13.3
[2025-08-16 04:22] VITALS: BP 137/78; PULSE 71; RESP 18; TEMP 37.2; O2SAT 99
--- NOTE | 2025-08-16 04:22 | ED_ITS ---
Discharge Plan Disposition Patient Disposition: Home, Self-Care Prescriptions Prescriptions: New sulfamethoxazole-trimethoprim 800-160 mg tablet 2 tab PO BID 7 Days Qty: 28 0RF No Action erythromycin 5 mg/gram (0.5 %) ointment 0.5 inch ophthalmic (eye) QID Qty: 3.5 0RF amoxicillin-pot clavulanate 875-125 mg tablet 1 tab PO BID 10 Days Qty: 20 0RF Referrals Follow up/Referrals: Emir Becerra [Primary Care Provider, Medical] - See instructions Activity Restrictions/Add. Instructions Additional Instructions/Restrictions: Please continue taking the antibiotics that you are prescribed yesterday. I have added on an additional antibiotic medication. Recommend following up with an eye doctor, especially if your symptoms continue to worsen. has eye doctors so I can see you in the emergency department, otherwise you can call [facility] to see if we can get a walk-in appointment. Clinical Impressions Clinical Impression: Preseptal cellulitis of left eye Print Language Print Language: Upper Sorbian Discharge ED Provider: Titus Mojica Adult HPI General Chief complaint: Eye Problems Stated complaint: swollen eye Time Seen by Provider: 08/16/25 04:05 Mode of Arrival: Ambulatory Source of Information: Patient Description of Symptoms (Recalled from ER Triage Doc. by RN): Patient states she was seen at the [facility] 2 days ago for eye swelling. states they put her on amoxicilin and erythromycin. States today her eye has been hurting 04/03. Advises swelling has gotten worse. States [facility] today her to come to ER if swelling gets worse. History of Present Illness HPI narrative: 55-year-old female without significant past medical history presents for left upper eyelid pain and swelling. It started couple of days ago and she saw the urgent care yesterday was given Augmentin and erythromycin ointment. The pain, redness and swelling have been worsening and so she comes back to the ER. She denies any vision changes. Reports it hurts when she blinks but does not hurt significantly when she moves her eye around. She reports that she folic she had something in her eye and scratched it a few days ago but does not feel like something is in her eye currently. Denies fever at home. Related Data Previous Rx's ?Medication ?Instructions ?Recorded amoxicillin 875 mg-potassium 1 tab PO BID 10 days #20 tabs 08/15/25 clavulanate 125 mg tablet erythromycin 5 mg/gram (0.5 %) eye 0.5 inch ophthalmic (eye) QID #3.5 08/15/25 ointment grams sulfamethoxazole 800 2 tab PO BID 7 days #28 tabs 08/16/25 mg-trimethoprim 160 mg tablet Allergies Allergy/AdvReac Type Severity Reaction Status Date / Time No Known Allergies Allergy Verified 08/15/25 16:06 [facility] Disclaimer: The information contained in this section may have been updated after the patient was seen, as this information can be updated by other users. 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 Have you lived/traveled outside US in past 30 days?: No Contact w/someone who lives/traveled outside US past 30 days?: No Exposure to someone with infectious disease in past 14 days?: No Do you have a fever (greater than 100.4 F or 38 C)?: No Have you tested positive for COVID-19?: No Exposed to someone with COVID-19 in past 14 days?: No Do you have a sore throat?: No Do you have a cough?: No Do you have any weakness?: No Do you have any diarrhea?: No Are you experiencing any unusual bleeding?: No Do you have any muscle aches/pain?: No Do you have any abdominal pain?: No Are you experiencing loss of taste or smell?: No Other Medical History Have you received the Flu Vaccine for this season: No Have you received the Pneumonia Vaccine: No ROS Obtained: Yes All systems reviewed & no additional complaints except as documented Physical Exam General General appearance: alert and in no apparent distress Head Head exam: atraumatic and normocephalic Eye Eye exam: Present PERRL, EOMI and periorbital swelling (Erythema and swelling of the left upper eyelid extending above the eyebrow. No chemosis.); Absent conjunctival redness or discharge ENT ENT exam: Present normal oropharynx and normal external ear exam Neck Neck exam: Present normal inspection and full ROM Chest Chest inspection: Present normal inspection and symmetric chest wall rise; Absent tenderness Respiratory Respiratory exam: Present normal lung sounds bilaterally; Absent respiratory distress Cardiovascular Cardiovascular exam: Present regular rate and normal rhythm Abdominal Exam Abdominal exam: Present soft; Absent distention, tenderness or guarding Extremities Exam Extremities exam: Present normal inspection; Absent edema or joint swelling Back Exam Back exam: Present normal inspection; Absent tenderness Neurological Exam Neurological exam: Present alert and oriented X3; Absent motor sensory deficit Psychiatric Psychiatric exam: Present normal affect and normal mood Skin Skin exam: Present warm, dry and normal color Lymphatic Lymphatic Findings: no adenopathy Medical Decision Making Medical Records Medical records reviewed: Yes I reviewed the patient's medical records. Screening: Per USPSTF and CDC recommendations, given the prevalence of disease in our region, it is our hospital?s policy to screen for HIV and viral Hepatitis for all patients aged 18 and over and those with ongoing risk factors. Isaiah Inquiry Pt receiving controlled substance: No Isaiah was queried for this patient: No Vital Signs: 08/16/25 04:09 08/16/25 04:22 Temperature 98.8 F 98.9 F Temperature Source Oral Oral Pulse Rate 71 Pulse Rate [Left] 71 Respiratory Rate 18 18 Blood Pressure 137/78 Blood Pressure [Right Arm] 157/78 H Blood Pressure Mean [Right Arm] 104 02 Sat by Pulse Oximetry 96 Oxygen Delivery Method Room Air Room Air Lab Data Lab results reviewed: Yes I reviewed the patient's lab results. Orders (Tests/Meds): ED MEDICATIONS Discontinued Medications Generic Name Dose Route Start Last Admin Trade Name Freq PRN Reason Stop Dose Admin Trimethoprim/Sulfamethoxazole 2 each 08/16/25 04:17 08/16/25 04:25 Sulfa/Trimethoprim 1 Tablet PO 08/16/25 04:18 2 each ONCE ONE Administration Medical Decision Narrative: 55-year-old female without significant past medical history presents for continued worsening of preseptal cellulitis despite Augmentin and erythromycin started yesterday.. History was obtained via interactive discussion with patient. On arrival, patient is [afebrile, hemodynamically stable, satting appropriately, alert, oriented x4, GCS 15], moving all extremities spontaneously. Full physical exam performed and significant for findings as documented above Differential includes but is not limited to preseptal cellulitis, orbital cellulitis, abscess. Exam is most consistent with preseptal cellulitis. Reports normal vision, there is no chemosis or conjunctival injection or proptosis on exam. We will expand her antibiotic coverage with Bactrim. Recommended that she follow-up with an housekeeping department worker or chest painting and sealing supervisor for further assessment, especially if her symptoms continue to worsen. She was given strict return precautions for signs of orbital cellulitis. Patient discharged in stable condition after dose of Bactrim. Procedures Risk/Benefits of Procedure(s) Were Explained: Yes Critical Care Critical Care Time Critical Care Time: No
[2025-08-16] MEDS: SULFA/TRIMETHOPRIM 1 TABLET 2 EACH PO (04:25)
== END 2025-08-16 04:32 | disposition home or self-care (01) ==
PROVIDERS: Emergency Provider Emergency Medicine; PCP Family Medicine
DX: L03.213 Periorbital cellulitis (principal); H02.844 Edema of left upper eyelid
CPT/HCPCS: 99283